=== PATIENT | male | born 1950 | race Caucasian/White ===

== ENCOUNTER → 2018-05-15 | Outpatient (CLI) | payer MEDICARE, OTHER | LOC: OD 10:33 | PROVIDERS: ATTEND Urology | DX: N21.0 Calculus in bladder (principal) | CPT/HCPCS: 87086; 87088; 87186 ==

== ENCOUNTER → 2018-06-03 | Outpatient (CLI) | payer MEDICARE, OTHER ==
--- NOTE | 2018-06-03 16:25 | RADIOLOGY REPORT (SQ) ---
EXAM DESCRIPTION: CYSTOGRAM MINIMUM 3 VIEW COMPLETED DATE/TIME: 06/03/2018 3:48 pm REASON FOR STUDY: BLADDER STONES (N21.0) COMPARISON: None. EXAM PARAMETERS: TECHNIQUE: Infusion of 100 cc water-solublecontrast into the bladder through a Fol ey catheter. Fluoroscopic spot films saved to PAC FLUOROSCOPY TIME: 1.4 minutes RADIATION DOSE: 13 images acquired. LIMITATIONS: Patient unable to tolerate full bladder distension. LIMITATIONS: As above. FINDINGS: The patient was brought into the fluoroscopy room and placed supine on the fluoroscopy tab le. The patient's existing Crockett was then infused with approximately 100 mL of non ionic contrast. Fluoroscopic images demonstrated no evidence of extravasation adjacent to the bladder. There was no e vidence of ureteral reflux. There is a large bladder diverticulum on the left posterior wall and sev eral smaller diverticuli seen on the left and right with some mild irregularity of the bladder wall. No bladder stones were visualized. Collection of contrast seen at the prostatic urethra, related to postoperative changes. No urethral extravasation seen. The patient could not tolerate full distention of the bladder. A fair amount of contrast did leak ar ound the Crockett catheter. Post void images demonstrated a minimal amount of residual contrast with in the bladder. IMPRESSION: No bladder stones visualized. Numerous bladder diverticuli seen. Prostatic urethral ybarra rgical changes noted. COMMENT: None PQRS 6045F: Fluoroscopy time of the procedure is documented in the report. TECHNICAL DOCUMENTATION: JOB ID: [id number] [employer]- All Rights Reserved Reading location - IP/workstation name: [email or web address] [id number]
== END ==
LOC: RAD 14:32
PROVIDERS: ATTEND Urology
DX: N21.0 Calculus in bladder (principal)
CPT/HCPCS: 74430

== ENCOUNTER → 2020-03-07 | Outpatient (CLI) | payer MEDICARE, OTHER ==
[~2020-03-07] MED LIST: COVID-19 VACCINE (PFIZER)/PF 30 MCG/0.3 ML VIAL IM ONE; EPINEPHRINE INJ/PF 1 MG/1 ML AMPULE IM PRN
== END ==
LOC: EMPHEALTH 08:43
PROVIDERS: ATTEND Internal Medicine
DX: Z23 Encounter for immunization (principal)
CPT/HCPCS: 91300